=== PATIENT | female | born 1995 | race Caucasian/White ===

== ENCOUNTER → 2018-08-31 14:50 | Observation (INO) ==
[2018-08-31 13:50] VITALS: BP 103/62
[2018-08-31 14:18] LABS: Bilirubin,Urine Negative (Negative); Blood,Urine Negative (Negative); Color,Urine Yellow (Yellow); Glucose,Urine (UA) Normal (Normal); Ketones,Urine Negative (Negative); Leukocyte Esterase,Urine Small (Negative); Nitrite,Urine Negative (Negative); Protein,Urine Trace mg/dL (Neg-Trace); Specific Gravity,Urine 1.017 (1.010-1.025); Urobilinogen,Urine Normal (Normal)
[2018-08-31 14:20] LABS: Bacteria,Urine Few per hpf (None-Few); Hyaline Casts,Urine None Seen per lpf (None-Few); RBC,Urine 0-3 per hpf (0-3); Squamous Epithelial Cell,Urine Many per lpf (None-Few)
[2018-08-31 14:33] LABS: Clarity,Urine Hazy (Clear)
[2018-08-31 14:35] LABS: Amorphous Sediment,Urine Many (Few)
[2018-08-31 14:47] LABS: Amphetamine Screen,Urine Negative ng/mL (Cutoff=1000); Barbiturate Screen,Urine Negative ng/mL (Cutoff=200); Benzodiazepines Screen,Urine Negative ng/mL (Cutoff=200); Cannabinoid Screen,Urine Negative ng/mL (Cutoff = 50); Cocaine Screen,Urine Negative ng/mL (Cutoff= 300); Opiate Screen,Urine Negative ng/mL (Cutoff=300); Phencyclidine Screen,Urine Negative ng/mL (Cutoff=25)
--- NOTE | 2018-08-31 15:03 | OB/GYN Progress Note ---
Date of Encounter: 08/31/18 Time of Encounter: 14:40 - Assessment and Plan (1) Amniotic fluid leaking Current Visit: Yes Status: Acute SSE negative pooling, negative nitrazine, negative fern. Discharge home with precautions. (2) 26 weeks gestation of Current Visit: Yes Status: Acute Subjective - Subjective Interval history: 23 year-old presenting at 26 weeks gestation with c/o pelvic pressure and leaking fluid. She reports constant pressure and leaks only when lifting her daughter. She denies contractions, cramping, or bleeding. No urinary sx. Good FM. Antepartum ROS: loss of fluid, movement normal, no vaginal bleeding, no contractions Objective - Vital Signs Vital Signs: Vital Signs Pulse Resp BP 08/31/18 13:46 106 14 103/62 - Exam FHR: category 1 FHR comments: FHT reassuring for GA Auscultation: bilateral: normal Abdomen: Present: soft, gravid. Absent: tenderness Uterus: Absent: tenderness Cervical dilation: closed Cervix effacement: thick - Labs Labs: Abnormal lab results Urine Clarity Hazy (Clear) A 08/31/18 13:46 Ur Leukocyte Esterase Small (Negative) H 08/31/18 13:46 Urine Microscopic WBC 3-5 per hpf (0-3) H 08/31/18 13:46 Ur Squamous Epith Cells Many per lpf (None-Few) H 08/31/18 13:46 Amorphous Sediment Many (Few) H 08/31/18 13:46 Ur Culture Indicated? NO. (NO) A 08/31/18 13:46
== END | disposition home or self-care (01) ==
LOC: 1NENULAB
PROVIDERS: ADMIT Registered Nurse; ATTEND Registered Nurse

== ENCOUNTER 2018-11-30 06:00 | Inpatient (IN) ==
[2018-11-30] MEDS ORDERED: Famotidine 20 MG/2 ML VIAL IVP PRN (06:17)
[2018-11-30] MEDS ORDERED: Naloxone 0.4 MG/ML INJ IVP PRN ×2 (06:17→08:53)
[2018-11-30] MEDS ORDERED: Metoclopramide 10 MG/2 ML VIAL IVP PRN (06:17)
[2018-11-30] MEDS ORDERED: Ondansetron 4 MG/2 ML VIAL IVP PRN ×2 (06:17→08:53)
[2018-11-30] MEDS ORDERED: *HR* Nalbuphine 10 MG/ML AMPUL IVP PRN (06:17)
[2018-11-30] MEDS ORDERED: Ringers Solution, Lactated 1,000 ML ONE (06:23)
[2018-11-30] MEDS ORDERED: Oxytocin 20 units/ LR 1000 mL 20 UNIT/1,000 ML BAG IVC SCH ×2 (06:30→17:49)
[2018-11-30] MEDS ORDERED: Ringers Solution, Lactated 1,000 ML IVC SCH (06:30)
[2018-11-30] MEDS ORDERED: Oxytocin 20 units/ LR 1000 mL 20 UNIT/1,000 ML BAG IVC ONE (06:40)
[2018-11-30 06:47] LABS: Basophils % 0.2 %; Eosinophils # 0.2 K/mcL (0.0-0.6); Eosinophils % 1.3 %; Hematocrit 35.2 % (35.3-44.9); Hemoglobin 11.5 g/dL (11.5-15.4); Lymphocytes # 2.8 K/mcL (0.6-4.6); Lymphocytes % 23.2 %; Mean Corpuscular HGB Conc 32.7 g/dL (31.6-35.5); Mean Corpuscular Hemoglobin 28.3 pg (28.0-33.3); Mean Corpuscular Volume 86.7 fL (83.0-100.0); Mean Platelet Volume 8.9 fL (9.4-12.4); Monocytes % 7.9 %; Neutrophils # 8.1 K/mcL (1.6-8.9); Platelet Count 336 K/mcL (140-400); Red Blood Count 4.06 M/mcL (3.82-4.97); Red Cell Distribution Width 13.2 % (11.5-14.5); Segmented Neutrophils % 66.4 %
[2018-11-30 06:53] LABS: Amphetamine Screen,Urine Negative ng/mL (Cutoff=1000); Barbiturate Screen,Urine Negative ng/mL (Cutoff=200); Benzodiazepines Screen,Urine Negative ng/mL (Cutoff=300); Cannabinoid Screen,Urine Negative ng/mL (Cutoff = 50); Cocaine Screen,Urine Negative ng/mL (Cutoff= 300); Opiate Screen,Urine Negative ng/mL (Cutoff=300); Phencyclidine Screen,Urine Negative ng/mL (Cutoff=25)
[2018-11-30] MEDS ORDERED: EPHEDrine 50 MG/ML VIAL IVP PRN (08:53)
[2018-11-30] MEDS ORDERED: *HR* Ropivacaine/PF 0.2% 20 ML VIAL EP ONE (08:53)
[2018-11-30] MEDS ORDERED: *HR* FentaNYL (PF) 100 MCG/2 ML VIAL EP ONE (08:53)
--- NOTE | 2018-11-30 08:59 | Anesthesia Evaluation PreOp ---
Date of Encounter: 11/30/18 Time of Encounter: 08:50 - Past History Planned Operation: AMY Cardiac History: Denies any Significant Hx Pulmonary History: Denies Any Significant HX ROLLER PRINTER History: Denies Any Significant HX Other Medical History: Denies Any Significant HX Anesthesia History: No Prior Anesthetic Complications, Past Anesthesia (T&A) : Yes Alcohol Use: none Drug use: marijuana Medications and Allergies Dha 1 tab PO DAILY 09/01/15 [History] Ondansetron ODT [Zofran ODT] 4 mg SL Q6HR PRN #10 tab.rapdis 10/08/18 [Rx] Allergy/AdvReac Type Severity Reaction Status Date / Time metronidazole [From Flagyl] AdvReac Nausea Verified 11/30/18 06:38 - Meds/Allergy Pre-op Review Medications Reviewed: Yes Allergies Reviewed: Yes Beta Blockers on Current Med List: No Anesthesia Results - Labs 11/30/18 06:25 Anesthesia Exam BP 117/69 P 67 R 16 T 98.2 Height: 5'1" Weight: 69kg NPO (# of Hours): 8 Pain Scale: 5 Pain Scale Used: Numeric (1 - 10) - HEENT Pupil (Motor): Pupils equal Mallampati: II Teeth: Normal Oral Opening: Greater than 3 - ROLLER PRINTER LOC: Oriented ROLLER PRINTER Motor: Normal RUE, Normal LUE, Normal RLE, Normal LLE, Normal Face ROLLER PRINTER Sensory: Normal: RUE, LUE, RLE, LLE, Face - Cardiac Rhythm: Regular Murmur: None JVD: No Carotid Bruit: No - Pulmonary Breath Sounds: bilateral Clear Respiratory Effort: Symmetrical Anesthesia Assess/Plan ASA Score: 2 Level of consciousness: Cooperative Anesthetic Plan: Epidural Autologous Blood: Yes Monitoring Plan: Standard Monitors Recovery Plan: Other
[2018-11-30] MEDS ORDERED: Epidural Premix (fent/bupiv) 110 ML EP SCH (09:00)
[2018-11-30] MEDS ORDERED: *HR* Ropivacaine/PF 0.2% 20 ML VIAL ONE (09:03)
[2018-11-30] MEDS ORDERED: *HR* FentaNYL (PF) 100 MCG/2 ML VIAL ONE (09:03)
[2018-11-30] MEDS ORDERED: Lidocaine -MPF 1% 5 ML AMPUL ONE (09:03)
--- NOTE | 2018-11-30 09:52 | Anesthesia Procedures ---
Date of Encounter: 11/30/18 Time of Encounter: 09:06 Procedures: Anesthesia - Epidural/Spinal Patient ID/Chart reviewed: Yes Patient examined: Yes OB Eval: Gestational age: 39 OB Eval: : 3 OB Eval: Hx Para: 2 OB Eval: Dilated at (cm): 3 OB Eval: Contractions: Non-stressed pattern Consent Obtained: Yes Supplemental Oxygen: None/Room Air Site Prep: Aseptic Technique, Sterile prep and drape, Povidone-Iodine 1% Patient position: upright Local Anesthetic: Lidocaine 1% Amount of Local Anesthetic used: 3 Touhy Needle Gauge: 18 Touhy Needle Depth (cm): 5 Catheter Depth at Skin (cm): 15 Test Dose (1.5% Lido + Epi): Volume given (mls): 3 Test Dose Result: Negative Loading Dose: Fentanyl (mcg): 100 Loading Dose Administered: Thru Touhy Needle Infusion Med: 0.125% Bupivacaine w/ 2 mcg/ml Fentanyl Infusion Rate (mls/hr): [address]: Tegaderm, Tape Interspace Used: L4-L5 Loss of Resistance (ANDRY): Yes Blood: No CSF: No Paresthesia: No Procedure: AMY placed 2st pass in upright position, 1st pass positive heme. 2nd pass successful negative heme, negative CSF, negative test dose. VSS and FHT stable. Secured with tegaderm and tape, pt supine following procedure with slight head up. Pt comfortable and not feeling contractions upon exiting room. Vitals + FHT's: 0906 BP 118/87 P 71 R 16 0942 BP 105/59 P 89 R 16 FHT 140s
--- NOTE | 2018-11-30 10:58 | OB Labor Progress Note ---
Date of Encounter: 11/30/18 Time of Encounter: 10:56 Labor Progress Note - Subjective Subjective: Pt comfortable with epidural. - Cervix Cervix: 5/80/-1 - Heart Tones Heart Tones: Category I - [place] M[place]: 2-2.5 minutes - Interventions Interventions: AROM for moderate amount clear fluid. IUPC placed. - Plan Plan: Continue to monitor and titrate pitocin. Anticipate .
--- NOTE | 2018-11-30 11:09 | OB/GYN History & Physical ---
Date of Encounter: 11/30/18 Time of Encounter: 11:07 Assessment and Plan (1) History of marijuana use Current visit: Yes Status: Acute Pt reports remote history of Marijuana use. Denies use during her . Utox Negative x2. (2) Rh negative status during in third trimester Current visit: Yes Status: Acute B Negative. Pt received Rhogam 09/19/2018. Repeat PP if indicated. (3) 39 weeks gestation of Current visit: No Status: Acute Epidural in place. Anticipate . History of Present Illness Chief complaint: IOL HPI: Ms. Molina is a 23 year old female presenting at 39w0d for IOL. Denies VB or LOF. Reports good FM. Received Rhogam 09/19/2018. B Negative GBS Negative Rubella Immune Varicella Immune Syphilis & GC/CT Negative Hep B & HIV Nonreactive Utox Negative x2 Past Med Surg Social Fam HX - Past Medical History Medical history: no medical history Psychiatric history: no psych history - Past Surgical History Surgical History: other Additional surgical history: T&A - Social History Smoking Status: Never smoker Smokeless Tobacco Status: No Alcohol use: none Drug use: marijuana - Family History Mother Living Status: Still Living Hx Family Cardiac Disorders: No Hx Family Respiratory Disorders: No Hx Family Cancer: No Hx Family GI Disorders: No Hx Family Endocrine Disorder: No Hx Family Neuromuscular Disorders: No Hx Family Neurologic Disorders: Yes (two cyst on brain) Hx Family HEENT Disorders: No Hx Family Autoimmune Disorders: No Obstetrical History - Pregnancies : 3 Para: 2 Term: 2 : 0 Ab's: 0 Livin Medications and Allergies Dha 1 tab PO DAILY 09/01/15 [History] Ondansetron ODT [Zofran ODT] 4 mg SL Q6HR PRN #10 tab.rapdis 10/08/18 [Rx] Allergy/AdvReac Type Severity Reaction Status Date / Time metronidazole [From Flagyl] AdvReac Nausea Verified 11/30/18 06:38 Review of System OB All systems PM: reviewed and no additional remarkable complaints except as stated Exam - Constitutional Constitutional: well developed, well nourished, no acute distress, average body habitus - HEENT HEENT: Normocephaly - Neck Neck exam: full ROM - Lungs Respiratory exam: CTAB - Cardiovascular Cardiovascular exam: RRR - Abdomen Abdomen: Present: bowel sounds normal, gravid, non tender - Extremities Extremities exam: normal capillary refill, normal inspection Deep Tendon Reflex Grade: 2+ Normal - Cervix Dilation: 5 Effacement: 80 Station: -2 Results Result Diagrams: 11/30/18 06:25 Abnormal lab results WBC 12.2 K/mcL (4.3-11.1) H 11/30/18 06:25 Hct 35.2 % (35.3-44.9) L 11/30/18 06:25 MPV 8.9 fL (9.4-12.4) L 11/30/18 06:25 All other labs normal. - VTE Reasons for not Prescribing Prophylaxis: Treatment not Indicated - Low risk for VTE
--- NOTE | 2018-11-30 12:49 | OB Labor Progress Note ---
Date of Encounter: 11/30/18 Time of Encounter: 12:47 Labor Progress Note - Subjective Subjective: Pt is not able to feel anything. She reports occassional lightheadedness. No other complaints. - Vital Signs Vital Signs: VSS - Cervix Cervix: 8/90/-1 - Heart Tones Heart Tones: Category II, minimal variability with early and late decelerations intermittently, Pitocin off, oxygen on, IV fluid bolusing - [place]: 2-3 minutes - Interventions Interventions: As above. - Plan Physician notified: Yes Physician notified details: Dr. Heard notified and has viewed this category II tracing. Dr. Heard informed of interventions as noted and of SVE. Plan: Continue to monitor. Anticipate .
--- NOTE | 2018-11-30 15:13 | OB/GYN Procedure Note ---
Delivery - Delivery Date: 11/30/18 Provider: Vannessa Amador Intrapartum events: none Delivery induction: oxytocin Delivery augmentation: rupture of membranes Delivery monitor: external FHT, internal uterine Anesthesia: epidural Quantitated Blood Loss: 250 - Infant (s) A Delivery Date: 11/30/18 Delivery Time: 14:47 Presentation: vertex Position: HILDA Route of delivery: Gender: Male Viability: Viable Pounds: 8 Ounces: 7 Weight Gram: 3830 kg at 1 minute: 8 at 5 mins: 9 Shoulder Dystocia: not encountered Specimens collected: cord blood Placenta: spontaneous - Repair Episiotomy: none Laceration Description: None - Complications Delivery complications: none - Disposition Mom disposition: stable in LDR disposition: stable in LDR - Comments Comments: Ms. Molina is a 23 y/o now 3 who presented at 39w0d for IOL. Labor was induced with pitocin and augmented with AROM of clear fluid. She progressed to a of a viable male, named Montez, weighing 8#7oz with apgars of 8 at 1 minute and 9 at 5 minutes. Infant placed on mom's chest and when cord pulsation ceased, cord was clamped and cut. Placenta then delivery spontaneously and intact; 3 vessel cord noted. Perineum intact. EBL 250. Mom and [id number] and attempting to breastfeed.
[2018-11-30] MEDS ORDERED: Acetaminophen 325 MG TABLET PO PRN (17:49)
[2018-11-30] MEDS ORDERED: Measles/Mumps/Rubella Vacc 0.5 ML VIAL SQ PRN (17:49)
[2018-11-30] MEDS ORDERED: Rho Immune Globulin 1,500 UNIT SYRINGE IM PRN (17:49)
[2018-11-30] MEDS: Ibuprofen 600 MG TABLET PO PRN (18:32)
[2018-12-01] MEDS ORDERED: Lanolin 7 G OINT...G. TP PRN (06:09)
[2018-12-01 06:16] LABS: Basophils % 0.1 %; Eosinophils # 0.2 K/mcL (0.0-0.6); Eosinophils % 1.4 %; Hematocrit 28.2 % (35.3-44.9); Immature Granulocytes % 0.6 % (0-4); Lymphocytes # 2.2 K/mcL (0.6-4.6); Lymphocytes % 15.9 %; Mean Corpuscular HGB Conc 32.6 g/dL (31.6-35.5); Mean Corpuscular Hemoglobin 28.4 pg (28.0-33.3); Mean Platelet Volume 8.8 fL (9.4-12.4); Monocytes % 6.9 %; Neutrophils # 10.5 K/mcL (1.6-8.9); Platelet Count 244 K/mcL (140-400); Red Blood Count 3.24 M/mcL (3.82-4.97); Red Cell Distribution Width 13.1 % (11.5-14.5); Segmented Neutrophils % 75.1 %
[2018-12-01] MEDS ORDERED: Ringers Solution, Lactated 1,000 ML ONE (06:16)
[2018-12-01 06:18] LABS: Hemoglobin 9.2 g/dL (11.5-15.4)
[2018-12-01 07:49] VITALS: BP 98/55
[2018-12-01] MEDS ORDERED: Prenatal Vit/FA 1 EACH TABLET PO SCH (09:00)
--- NOTE | 2018-12-01 09:01 | OB/GYN Progress Note ---
Date of Encounter: 12/01/18 Time of Encounter: 08:58 - Assessment and Plan (1) Tachycardia Current Visit: Yes Status: Acute Tachycardia was noted while laboring. EKG to be repeated today. Will wait for results and revise plan of care as needed. (2) anemia Current Visit: No Status: Acute Patient is asymptomatic with Hgb 9.2, Vitals stable. Send home with Iron daily (3) Vaginal delivery Current Visit: No Status: Acute Patient meeting day one milestones. Pain well-controlled with prescribed medications. Voiding without difficulty, tolerating regular diet, lochia light to moderate. No bowel movement yet. Anticipate discharge either today or tomorrow. Patient is planning on a tubal today so we will see how she feels afterwards. Subjective - Subjective Principal diagnosis: Status post vaginal delivery Interval history: Patient did have some tachycardia during labor with irregular heartbeat. Repeat EKG ordered this morning. Will revise plan of care based on EKG findings. Patient is interested in a tubal ligation today and Dr. Howard is aware and plans to complete this after office hours today. Patient is NPO and aware of timing for procedure. Patient states she is feeling well today and denies chest pain and heavines, SOB. Vitals WNL. Delivery Date: 11/30/18 Provider: Vannessa Amador Intrapartum events: none Delivery induction: oxytocin Delivery augmentation: rupture of membranes Delivery monitor: external FHT, internal uterine Anesthesia: epidural Quantitated Blood Loss: 250 - Infant (s) A Infant Delivery Date: 11/30/18 Delivery Time: 14:47 Presentation: vertex Position: HILDA Route of delivery: Gender: Male Viability: Viable Pounds: 8 Ounces: 7 Weight Gram: 3830 kg at 1 minute: 8 at 5 mins: 9 Shoulder Dystocia: not encountered Specimens collected: cord blood Placenta: spontaneous - Repair Episiotomy: none Laceration Description: None - Complications Delivery complications: none - Disposition Mom disposition: stable in LDR disposition: stable in LDR - Comments Comments: Ms. Molina is a 23 y/o now 3 who presented at 39w0d for IOL. Labor was induced with pitocin and augmented with AROM of clear fluid. She progressed to a of a viable male, named Emmons, weighing 8#7oz with apgars of 8 at 1 minute and 9 at 5 minutes. Infant placed on mom's chest and when cord pulsation ceased, cord was clamped and cut. Placenta then delivery spontaneously and intact; 3 vessel cord noted. Perineum intact. EBL 250. Mom and [id number] and attempting to breastfeed. Patient reports: appetite normal, voiding normally, pain well controlled, ambulating normally [place]: doing well, nursing well Objective - Latest Vital Signs Latest vital signs: Vital Signs Temp Pulse Pulse Resp BP Pulse Ox 12/01/18 07:30 97.8 F 78 12 98/55 99 12/01/18 04:42 64 14 12/01/18 04:30 97.8 F 70 16 101/60 99 11/30/18 19:55 98.1 F 87 87 14 111/68 99 11/30/18 18:45 98.2 F 74 16 108/62 100 11/30/18 17:41 98.1 F 64 16 101/56 99 Intake and Output 11/30/18 12/01/18 12/01/18 23:59 07:59 15:59 Intake Total 1400 / 1400 Output Total 800 / 800 1600 / 1600 Balance -800 / -800 -200 / -200 Intake: Oral 1400 / 1400 Output: Urine 800 / 800 1600 / 1600 Other: Weight 64.5 kg 65.3 kg Patient Weight 12/01/18 23:59 Weight 65.3 kg - Exam Lungs: bilateral: normal Chest: Normal S1, Normal S2 Extremities: Present: normal Abdomen: Present: normal appearance, soft, gravid Uterus: Present: normal, firm Uterus Position: At Umbilicus, Midline - Labs Labs: Laboratory Results - last 24 hr 11/30/18 12/01/18 15:20 06:00 WBC 13.9 H RBC 3.24 L Hgb 9.2 L D Hct 28.2 L MCV 87.0 MCH 28.4 MCHC 32.6 RDW 13.1 Plt Count 244 MPV 8.8 L Immature Gran % 0.6 Seg Neutrophils % 75.1 Lymphocytes % 15.9 Monocytes % 6.9 Eosinophils % 1.4 Basophils % 0.1 Neutrophils # 10.5 H Lymphocytes # 2.2 Monocytes # 1.0 Eosinophils # 0.2 Basophils # 0.0 Baby's Blood Type O RH POSITIVE Mother's Blood Type B RH NEGATIVE Rhogam Indicated YES
[2018-12-01] MEDS: Ibuprofen 600 MG TABLET PO PRN ×2 (10:17→15:33)
--- NOTE | 2018-12-01 13:53 | Discharge Summary ---
Date of Encounter: 12/01/18 Time of Encounter: 13:51 - Discharge Diagnosis (1) Tachycardia Priority: Secondary Status: Acute Comments: ECG repeated today due to tachycardia during labor. Returned "atypical ECG" Dr. Howard cancelled BPS due to this finding. 48 Hr Holter monitor ordered prior to discharge, to follow up with Cardiology on an outpatient basis after Holter monitoring completed. (2) anemia Priority: Secondary Status: Acute Comments: Iron daily as prescribed (3) Vaginal delivery Priority: Primary Status: Acute Comments: See previous note. Will discharge home today after Holter monitor arranged. - Discharge Medications Prescriptions: Ibuprofen [Motrin] 600 mg PO Q6HR PRN #60 tab PRN Reason: Pain Breast Pump [BREAST PUMP] 1 each .ROUTE AD #1 each Ferrous Sulfate 325 mg PO DAILY #30 tablet Home Medications: Dha 1 tab PO DAILY 09/01/15 [History] Ondansetron ODT [Zofran ODT] 4 mg SL Q6HR PRN #10 tab.rapdis 10/08/18 [Rx] Breast Pump [BREAST PUMP] 1 each .ROUTE AD #1 each 12/01/18 [Rx] Ferrous Sulfate 325 mg PO DAILY #30 tablet 12/01/18 [Rx] Ibuprofen [Motrin] 600 mg PO Q6HR PRN #60 tab 12/01/18 [Rx] Allergies/Adverse Reactions: Allergy/AdvReac Type Severity Reaction Status Date / Time metronidazole [From Flagyl] AdvReac Nausea Verified 11/30/18 06:38 Data Procedures and tests throughout hospitalization: Laboratory Tests 11/30/18 11/30/18 11/30/18 06:25 06:25 15:20 WBC 12.2 H RBC 4.06 Hgb 11.5 Hct 35.2 L MCV 86.7 MCH 28.3 MCHC 32.7 RDW 13.2 Plt Count 336 MPV 8.9 L Immature Gran % 1.0 Seg Neutrophils % 66.4 Lymphocytes % 23.2 Monocytes % 7.9 Eosinophils % 1.3 Basophils % 0.2 Neutrophils # 8.1 Lymphocytes # 2.8 Monocytes # 1.0 Eosinophils # 0.2 Basophils # 0.0 Urine Opiates Screen Negative Ur Barbiturates Screen Negative Ur Phencyclidine Scrn Negative Ur Amphetamines Screen Negative U Benzodiazepines Scrn Negative Urine Cocaine Screen Negative U Marijuana (THC) Screen Negative Ur Drug Screen Interp See Below Screen NEGATIVE Baby's Blood Type O RH POSITIVE Mother's Blood Type B RH NEGATIVE Rhogam Indicated YES Rhogam Req for Mother 1 12/01/18 06:00 WBC 13.9 H RBC 3.24 L Hgb 9.2 L D Hct 28.2 L MCV 87.0 MCH 28.4 MCHC 32.6 RDW 13.1 Plt Count 244 MPV 8.8 L Immature Gran % 0.6 Seg Neutrophils % 75.1 Lymphocytes % 15.9 Monocytes % 6.9 Eosinophils % 1.4 Basophils % 0.1 Neutrophils # 10.5 H Lymphocytes # 2.2 Monocytes # 1.0 Eosinophils # 0.2 Basophils # 0.0 Urine Opiates Screen Ur Barbiturates Screen Ur Phencyclidine Scrn Ur Amphetamines Screen U Benzodiazepines Scrn Urine Cocaine Screen U Marijuana (THC) Screen Ur Drug Screen Interp Screen Baby's Blood Type Mother's Blood Type Rhogam Indicated Rhogam Req for Mother Labs on day of discharge: Labs from last 24 hours 12/01/18 11/30/18 06:00 15:20 WBC 13.9 H RBC 3.24 L Hgb 9.2 L D Hct 28.2 L MCV 87.0 MCH 28.4 MCHC 32.6 RDW 13.1 Plt Count 244 MPV 8.8 L Immature Gran % 0.6 Seg Neutrophils % 75.1 Lymphocytes % 15.9 Monocytes % 6.9 Eosinophils % 1.4 Basophils % 0.1 Neutrophils # 10.5 H Lymphocytes # 2.2 Monocytes # 1.0 Eosinophils # 0.2 Basophils # 0.0 Screen NEGATIVE Baby's Blood Type O RH POSITIVE Mother's Blood Type B RH NEGATIVE Rhogam Indicated YES Rhogam Req for Mother 1 Date of admission: 11/30/18 06:13 Primary care physician: Melissa Purdy CNP Consults: 11/30/18 17:49 Consult to Ophthalmic Tech [CONS] Routine Comment: Vaginal delivery, consult needed Discharging clinician: Lynda Moore Anticipated date of discharge: 12/01/18 - Patient Status Disposition: Home, Self-Care Condition: Good Functional capacity at discharge: independent ambulation Overall status at discharge: patient is progressing back to baseline - Discharge Instructions Follow Up With: Melissa Purdy CNP [Primary Care Provider] - - Diet and Activity Activity: resume usual activities as tolerated Diet: regular diet Hospital Course Reason for admission: induction of labor Delivery: Episiotomy: none Laceration: none Other procedures: other (Holter monitoring) complications: other (atypical ECG) Discharge diagnosis: IUP at term delivered baby: male Hospital course: Patient with an yesterday afternoon. She was noted to have tachycardia after epidural placement and now with an irregular rhythm. Patient is doing well today with no complaints and pain is well controlled with Motrin. She was scheduled to have a BPS this afternoon but a repeat ECG was done today and shows "atypical ECG." After consulting with Dr. Howard, decision is made to cancel BPS today, order holter monitor prior to discharge and patient should follow up with cardiology as an outpatient after holter monitoring completed. She is to follow up as scheduled in 4 weeks at which time tubal ligation can be discussed. Patient was offered control prior to discharge and declined stating that she planned on abstaining from sex until her tubal is completed. Time Attestation: Total time spent providing and/or coordinating discharge services: Time Spent: Less than 30 minutes Exam - Constitutional Vitals: Temp Pulse Resp BP Pulse Ox 97.8 F 78 12 98/55 99 12/01/18 07:30 12/01/18 07:30 12/01/18 07:30 12/01/18 07:30 12/01/18 07:30 General appearance IM: A&O X 3, pleasant, no acute distress, answers questions appropriately - Respiratory Respiratory exam: Present: CTAB - Cardiovascular Cardiovascular exam IM: Present: irregular rhythm, +S1, +S2 - GI/Abdominal GI/Abdominal exam IM: normal bowel sounds, soft - Rectal Rectal exam: deferred - Extremities Exam Extremities exam IM: Present: full ROM, normal capillary refill, normal inspection - Neurological Exam Neurological exam: alert, normal gait, oriented X3
--- NOTE | 2018-12-01 20:22 | Electrocardiograph Report ---
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
--- NOTE | 2018-12-01 21:14 | Electrocardiograph Report ---
[place] [id number] Test Date: 2018-11-30 Pat Name: Hemalatha Molina Department: 101 Room: [facility] Gender: Line Controller: DALJIT : 1995 Requested By: Vannessa Amador Order Number: [id number] Reading MD: Kim Muir Measurements Intervals [place] Rate: 60 P: 30 [place]: 180 QRS: 61 QRSD: 86 T: 40 QT: 421 QTc: 422 Interpretive Statements ARTIFACT LIMITS INTERPRETATION Electronically Signed On 12-01-2018 21:13:02 EST by Kim Muir
== END 2018-12-01 18:20 | disposition home or self-care (01) | DRG 807 ==
LOC: 1NENULAB 06:13 → 1NENUOBS 17:39
PROVIDERS: ADMIT Registered Nurse; ATTEND Registered Nurse

== ENCOUNTER 2021-09-07 11:33 | Inpatient (IN) ==
[~2021-09-07 11:33] MED LIST: *HR* Nalbuphine 10 MG/ML AMPUL IV PRN; Azithromycin 500 MG in 0.9 % Sodium Chloride 250 ML IVPB PRN; Famotidine 20 MG/2 ML VIAL IVP PRN; Metoclopramide 10 MG/2 ML VIAL IVP PRN; Naloxone 0.4 MG/ML INJ IVP PRN; Ondansetron 4 MG/2 ML VIAL IVP PRN; Ringers Solution, Lactated 1,000 ML IVC SCH
[2021-09-07 12:02] LABS: Basophils % 0.2 %; Eosinophils # 0.3 K/mcL (0.0-0.6); Eosinophils % 1.8 %; Hematocrit 40.3 % (35.3-44.9); Hemoglobin 13.5 g/dL (11.5-15.4); Immature Granulocytes % 0.9 % (0-4); Lymphocytes # 1.9 K/mcL (0.6-4.6); Lymphocytes % 12.5 %; Mean Corpuscular HGB Conc 33.5 g/dL (31.6-35.5); Mean Corpuscular Hemoglobin 30.1 pg (28.0-33.3); Mean Corpuscular Volume 89.8 fL (83.0-100.0); Mean Platelet Volume 8.9 fL (9.4-12.4); Monocytes # 0.9 K/mcL (0.0-1.3); Monocytes % 6.1 %; Neutrophils # 11.7 K/mcL (1.6-8.9); Platelet Count 375 K/mcL (140-400); Red Blood Count 4.49 M/mcL (3.82-4.97); Segmented Neutrophils % 78.5 %; White Blood Count 14.9 K/mcL (4.3-11.1)
[2021-09-07] MEDS ORDERED: EPHEDrine 50 MG/ML VIAL IVP PRN (12:20)
[2021-09-07] MEDS ORDERED: Ondansetron 4 MG/2 ML VIAL IVP PRN (12:20)
[2021-09-07] MEDS ORDERED: Naloxone 0.4 MG/ML INJ IVP PRN (12:20)
[2021-09-07] MEDS ORDERED: Ropivacaine/PF 0.2% 20 ML VIAL EP ONE (12:20)
[2021-09-07] MEDS ORDERED: *HR* FentaNYL (PF) 100 MCG/2 ML VIAL EP ONE (12:20)
[2021-09-07 12:29] LABS: Amphetamine Screen,Urine Negative ng/mL (Cutoff=1000); Barbiturate Screen,Urine Negative ng/mL (Cutoff=200); Benzodiazepines Screen,Urine Negative ng/mL (Cutoff=200); Cannabinoid Screen,Urine Positive ng/mL (Cutoff = 50); Cocaine Screen,Urine Negative ng/mL (Cutoff= 300); Opiate Screen,Urine Negative ng/mL (Cutoff=300); Phencyclidine Screen,Urine Negative ng/mL (Cutoff=25)
[2021-09-07] MEDS ORDERED: Epidural Premix (fent/bupiv) 110 ML EP SCH (12:30)
[2021-09-07] MEDS ORDERED: Ropivacaine/PF 0.2% 20 ML VIAL ONE (12:31)
[2021-09-07 12:42] LABS: Influenza A PCR Negative (Negative); Influenza B PCR Negative (Negative); Resp. Syncytial Virus PCR Negative (Negative); SARS-CoV-2 by PCR (In House) Negative (Negative)
[2021-09-07] MEDS ORDERED: Oxytocin 20 units/ LR 1000 mL 20 UNIT/1,000 ML BAG IVC SCH ×2 (16:30→22:52)
[2021-09-07] MEDS ORDERED: Ondansetron ODT 4 MG TAB.RAPDIS SL PRN (22:52)
[2021-09-07] MEDS ORDERED: Rho Immune Globulin 1,500 UNIT SYRINGE IM PRN (22:52)
[2021-09-07] MEDS ORDERED: Lanolin 7 G OINT...G. TP PRN (22:52)
[2021-09-07] MEDS ORDERED: Benzocaine/Menthol 56 GM AEROSOL SPRAY TP PRN (22:52)
[2021-09-08] MEDS: Ibuprofen 600 MG TABLET PO SCH ×4 (00:08→18:21)
[2021-09-08] MEDS: Acetaminophen 325 MG TABLET PO SCH ×4 (00:08→18:21)
[2021-09-08] MEDS ORDERED: Prenatal Vit/FA 1 EACH TABLET PO SCH (09:00)
[2021-09-08 16:29] VITALS: BP 109/74; PULSE 74; TEMP 98; O2SAT 100
== END 2021-09-08 20:58 | disposition home or self-care (01) | DRG 807 ==
LOC: 1NENULAB → 1NENUOBS 22:29
PROVIDERS: ADMIT Registered Nurse; ATTEND Registered Nurse